=== PATIENT | male | born 1990 | race Caucasian/White ===

== ENCOUNTER 2017-09-23 01:37 | Emergency (ER) | payer OTHER ==
[2017-09-23] MEDS ORDERED: Lidocaine 1% w/Epinephrine 1:100K 20 ML VIAL ONE (02:31)
[2017-09-23] MEDS ORDERED: Lidocaine 1% (PF) 30 ML VIAL ONE (02:31)
== END 2017-09-23 03:32 | disposition home or self-care (01) ==
LOC: ERS 01:37
DX: S61.214A Laceration without foreign body of right ring finger without damage to nail, initial encounter (principal); S61.411A Laceration without foreign body of right hand, initial encounter; F17.210 Nicotine dependence, cigarettes, uncomplicated; W45.8XXA Other foreign body or object entering through skin, initial encounter
CPT/HCPCS: 12001; J2001